=== PATIENT | female | born 1965 | race Caucasian/White ===

== ENCOUNTER → 2019-08-18 | Outpatient (CLI) | payer OTHER ==
--- NOTE | 2019-08-18 09:40 | KCIC ---
EXAMINATION: Magnetic resonance imaging (MRI) of the cervical spine without contrast 08/18/2019 8:00 AM HISTORY: Degenerative disc disease with neck pain TECHNIQUE: Multiplanar multi-weighted MRI of the cervical spine was performed without intravenous contrast using the standard cervical spine protocol. Contrast information: None administered COMPARISON: None available. FINDINGS: There is minimal retrolisthesis of C5 on C6. Vertebral bodies demonstrate normal signal intensity on all sequences. No acute fracture is identified; however, if trauma is suspected, a CT scan would be a more sensitive examination for fractures. The craniocervical junction is normal. The visualized portions of the skull base and the posterior fossa are normal. The spinal cord demonstrates normal signal intensity on all sequences. Mild disc height loss at C4-C5, C5-C6 and C6-C7 with associated disc desiccation and mild to moderate anterior marginal osteophytosis. No soft tissue abnormality is identified. Normal signal voids are present in the vertebral arteries. C2-C3: The disk is normal in configuration. There is no facet arthropathy. There is no uncovertebral joint disease. There is no neuroforaminal stenosis. There is no spinal canal stenosis. C3-C4: The disk is normal in configuration. There is no facet arthropathy. There is no uncovertebral joint disease. There is no neuroforaminal stenosis. There is no spinal canal stenosis. C4-C5: Mild disc bulge. There is no facet arthropathy. There is no uncovertebral joint disease. There is no neuroforaminal stenosis. There is no spinal canal stenosis. C5-C6: Mild disc bulge with central disc protrusion. There is mild facet arthropathy. There is moderate right and mild left uncovertebral joint disease. There is mild/moderate right and mild left neuroforaminal stenosis. There is mild spinal canal stenosis without deformity of the cord or cord signal alteration. C6-C7: There is a posterior disc osteophyte complex. There is mild facet arthropathy. There is mild to moderate uncovertebral joint disease. There is mild bilateral neuroforaminal stenosis. There is mild spinal canal stenosis. C7-T1: The disk is normal in configuration. There is no facet arthropathy. There is no uncovertebral joint disease. There is no neuroforaminal stenosis. There is no spinal canal stenosis. IMPRESSION: Mild degenerative changes of the cervical spine as described in detail above. Electronically signed by: Magdalena Sellers MD (08/18/2019 9:37 AM) [facility]
== END | disposition home or self-care (01) ==
LOC: KCIC MRI 07:52
PROVIDERS: ATTEND Nurse Practitioner Family
DX: M50.30 Other cervical disc degeneration, unspecified cervical region (principal); M47.892 Other spondylosis, cervical region; M25.78 Osteophyte, vertebrae
CPT/HCPCS: 72141